=== PATIENT | female | born 1965 | race Caucasian/White ===

== ENCOUNTER 2016-09-01 09:05 | Emergency (ER) | payer OTHER ==
[~2016-09-01] VITALS: Ht 165.1 cm; Wt 94.3 kg
[~2016-09-01 09:05] MED LIST: ALBU1AER9; ASPI1TAB4
[2016-09-01 09:10] VITALS: TEMP 37.1; Ht 165.1 cm; Wt 94.3 kg
[2016-09-01] MEDS ORDERED: IBUP1CAP (10:01)
[2016-09-01 10:05] LABS: HEMATOCRIT 40.4 % (37-47); MEAN CORPUSCULAR HEMOGLOBIN 29.7 pg (25-34); MEAN CORPUSCULAR HGB CONC 35.4 g/dl (32-36); MEAN PLATELET VOLUME 10.2 fL (7.4-10.4); PLATELET COUNT 188 K/uL (130-400); RED BLOOD COUNT 4.81 M/uL (4.2-5.4); WHITE BLOOD COUNT 10.04 K/uL (4.8-10.8)
[2016-09-01 10:21] LABS: BUN/CREATININE RATIO 10.7 (10-20); CALCIUM 8.7 mg/dl (8.5-10.1); CREATININE 0.75 mg/dl (0.60-1.20); POTASSIUM 3.6 mmol/L (3.5-5.1)
[2016-09-01 10:24] LABS: MANUAL MICROSCOPIC REQUIRED? NO; REVIEW REQ? NO; URINE APPEARANCE CLEAR (CLEAR); URINE BILIRUBIN NEG (NEG); URINE COLOR YELLOW; URINE NITRITE NEG (NEG); URINE SPECIFIC GRAVITY 1.004 (1.000-1.030); UROBILINOGEN NEG (NEG); ZZUR CULT IF INDIC CLEAN CATCH NO
[2016-09-01] MEDS ORDERED: KETOROLAC TROMETHAMINE 30 MG/ML VIAL IV STA (10:39)
[2016-09-01] MEDS ORDERED: SODIUM CHLORIDE 0.9% 1000ML 1,000 ML IV STA (10:49)
--- NOTE | 2016-09-01 10:49 | EMERGENCY ROOM VISIT NOTE ---
History Report prepared by Giovanni: Nahomy Tate Under the Supervision of: Dr. Lata Rodgers M.D. First contact with patient: 10:35 Chief Complaint: VAGINAL BLEEDING Stated Complaint: VAGINAL BLEEDING,CRAMPING History of Present Illness The patient is a 50 year old female who presents to the Emergency Room with complaints of intermittent vaginal bleeding that began 2 months ago. The patient states that she has a history of endometrial ablation, and since then her periods have been fairly light. At the beginning of June, she had what seemed like a normal period for about five days. A few days later, she had another 5 days of bleeding. 4-5 days later, she started bleeding heavily and had intense menstrual cramps. She had a 10 day period in the middle of July that was slightly heavier than normal but not as heavy as the previous episode of bleeding. Last week, she followed with gynecology to have a biopsy, ultrasound, blood work, and pelvic exam. Everything seemed to be normal other than the fact that her doctor noticed extra bacteria on the pelvic exam. She was given a vaginal cream to use for 5 days. She had some light bleeding after her appointment. 2 days ago, she had another menstrual period. She notes that her menstrual cramps are much worse than normal. She also complains of feeling drained of energy. She has not taken anything in the past 10 hours for her pain. Source of History: patient Onset: 2 months ago Position: other () Quality: other (vaginal bleeding) Timing: intermittent Associated Symptoms: + abdominal pain Note: Other symptoms: no energy Review of Systems See HPI for pertinent positives & negatives. A total of 10 systems reviewed and were otherwise negative. Past Medical & Surgical Medical Problems: (1) Asthma (2) Borderline hyperglycemia (3) Exploratory laparotomy (4) Postoperative hemorrhage Surgical Problems: (1) History of herniorrhaphy Family History Cancer Hypertension Lung disease Social History Smoking Status: Current Every Day Smoker Alcohol Use: none Drug Use: none Marital Status: Housing Status: lives with family Current/Historical Medications Scheduled PRN Albuterol (Proair Hfa), 2 for Wheezing Miscellaneous Medications Ibuprofen (Midol) Allergies Coded Allergies: Sulfamethoxazole w/Trimethoprim (Unverified Adverse Reaction, Unknown, dizziness, 09/01/16) Pt guessed on drug name, said "that sounded right.." Physical Exam Vital Signs Date Time Temp Pulse Resp B/P Pulse Ox O2 Delivery O2 Flow Rate FiO2 09/01/16 14:16 70 17 124/81 98 Room Air 09/01/16 13:09 78 17 131/62 99 Room Air 09/01/16 11:10 83 17 118/75 99 Room Air 09/01/16 09:10 37.1 95 18 169/97 98 Room Air Physical Exam Vital signs reviewed. General: Well-appearing 50 year old female, in no significant distress. HEENT: No scleral icterus, PERRLA, neck supple. Atraumatic. Cardiovascular: Regular rate and rhythm, no extra sounds. Pulmonary: Clear to auscultation bilaterally, normal work of breathing. Abdomen: Obese, soft, mild suprapubic tenderness, nondistended, positive bowel sounds. Musculoskeletal: Atraumatic, no peripheral edema. Neurologic: Patient awake alert and oriented x 3 Skin: Warm, dry, no rash Medical Decision & Procedures Laboratory Results 09/01/16 09:40 09/01/16 09:40 Test 09/01/16 09:19 09/01/16 09:40 Urine Color YELLOW Urine Appearance CLEAR (CLEAR) Urine pH 7.0 (4.5-7.5) Urine Specific Cle[place] 1.004 (1.000-1.030) Urine Protein NEG (NEG) Urine Glucose (UA) NEG (NEG) Urine Ketones NEG (NEG) Urine Occult Blood 3+ (NEG) Urine Nitrite NEG (NEG) Urine Bilirubin NEG (NEG) Urine Urobilinogen NEG (NEG) Urine Leukocyte Esterase TRACE (NEG) Urine WBC (Auto) 1-5 /hpf (0-5) Urine RBC (Auto) >30 /hpf (0-4) Urine Hyaline Casts (Auto) 0 /lpf (0-5) Urine Epithelial Cells (Auto) 10-20 /lpf (0-5) Urine Bacteria (Auto) NEG (NEG) Urine Test NEG (NEG) Red Blood Count 4.81 M/uL (4.2-5.4) Mean Corpuscular Volume 84.0 fL (80-100) Mean Corpuscular Hemoglobin 29.7 pg (25-34) Mean Corpuscular Hemoglobin Concent 35.4 g/dl (32-36) RDW Standard Deviation 39.1 fL (36.4-46.3) RDW Coefficient of Variation 12.9 % (11.5-14.5) Mean Platelet Volume 10.2 fL (7.4-10.4) Anion Gap 7.0 mmol/L (3-11) Est Creatinine Clear Calc Drug Dose 99.6 ml/min Estimated GFR () 106.2 Estimated GFR (Non- 91.6 BUN/Creatinine Ratio 10.7 (10-20) Calcium Level 8.7 mg/dl (8.5-10.1) Laboratory results per my review. Medications Administered Medications (Trade) Dose Ordered Sig/Paloma Route Start Time Stop Time Status Last Admin Dose Admin Ketorolac Tromethamine 30 mg 30 mg NOW STAT IV 09/01/16 10:39 09/01/16 10:40 DC 09/01/16 11:11 30 MG Sodium Chloride (Nss 1000ml) 1,000 ml @ 999 mls/hr Q1H1M STAT IV 09/01/16 10:49 09/01/16 11:49 DC 09/01/16 11:10 999 MLS/HR ED Course 1038: The patient was evaluated in room B2. A complete history and physical examination was performed. Ordered Toradol Inj 30 mg IV. 1049: Ordered NSS 1000 ml @ 999 mls/hr IV. 1329: I discussed the case with Dr. Jose Eduardo Rubio [facility]. He will assess the patient. 1410: Upon reevaluation, the patient was resting comfortably. I discussed findings with her. She verbalized agreement of the treatment plan. The patient was discharged home. Medical Decision Differential includes but is not limited to dysfunctional uterine bleeding, endometrial cancer, trauma. This patient was evaluated and appeared to be in no significant distress. IV access was obtained and laboratory work was drawn. The patient was placed on the school bus monitor and found to be in a normal sinus rhythm. Patient was medicated with IV Toradol for her discomfort. Vital signs have remained stable. Laboratory work reveals a stable H&H. Patient states she has had a recent pelvic ultrasound, endometrial biopsy and pelvic exam by her [facility]. I do not think further workup in the emergency department is warranted. Dr. Whitt of [facility] was consulted. He evaluated the patient emergency department and has arrange for follow-up. She will use ibuprofen as needed for pain and return to the ER for worsening of symptoms or any medical concerns. Consults Time Called: 1320 Consulting Physician: Dr. Jose Eduardo Xiao Gynecology Returned Call: [phone] I discussed the case with him. He will assess the patient. Impression Primary Impression: Abnormal vaginal bleeding Scribe Attestation The scribe's documentation has been prepared under my direction and personally reviewed by me in its entirety. I confirm that the note above accurately reflects all work, treatment, procedures, and medical decision making performed by me. Departure Information Dispostion Home / Self-Care Referrals Samantha Arce D.O. (PCP) Patient Instructions My [facility] Additional Instructions Diagnosis: Abnormal vaginal bleeding Ibuprofen 600 mg every 6 hours as needed for pain with food. Drink plenty of clear fluids. Follow-up with [facility] as directed. Return to the ER for worsening of symptoms or any medical concerns.
[2016-09-01 14:16] VITALS: BP 124/81; PULSE 70; O2SAT 98
--- NOTE | 2016-09-02 01:54 | GYNECOLOGICAL CONSULTATION ---
DATE OF CONSULTATION: 09/01/2016 REQURESTING PHYSICIAN: Dr. Lata Rodgers from ER. HISTORY OF PRESENT ILLNESS: This is a 50-year-old female who presents to the Emergency Room with complaints of irregular bleeding x2 months. The patient has had a history of endometrial ablation about 5 years ago and was doing well. In the last year, she has continued to experience irregular bleeding. She was seen in the [facility] office where endometrial biopsy and a pelvic ultrasound was done sometime last month. The patient has a followup appointment to discuss the next step in management. She did, however, have some bleeding today and decided to come to the Emergency Room for evaluation. On arrival at the Emergency Room, she was seen by Dr. Rodgers and evaluated. The patient is stable. She had no shortness of breath, no chills, no fever. INTERLOCKING MACHINE OPERATOR was called for consult. On arrival, the above history was confirmed. The patient reports irregular bleeding, she is frustrated and wants something done about the irregular bleeding. I got the opportunity to review her ultrasound and endometrial biopsy. PAST MEDICAL HISTORY: The patient has history of asthma and hypoglycemia. PAST SURGICAL HISTORY: The patient has history of laparoscopy and hysteroscopy. FAMILY HISTORY: Noncontributory. SOCIAL HISTORY: The patient denies tobacco, drug or alcohol use. MEDICATIONS: The patient is on albuterol p.r.n. ALLERGIES: THE PATIENT IS ALLERGIC TO BACTRIM. PHYSICAL EXAMINATION: GENERAL: Well-developed, well-nourished white female in no acute distress. VITAL SIGNS: Temperature 37.1, pulse 95, respirations 18, blood pressure 169/97. HEART: S1, S2, regular rhythm and rate. LUNGS: Clear to auscultation bilaterally. ABDOMEN: Nontender, nondistended. PELVIC: Mild to moderate vaginal bleeding. No adnexal masses are palpated. EXTREMITIES: No cyanosis, clubbing or edema. ASSESSMENT AND PLAN: A 50-year-old with irregular bleeding. The patient has already been seen at [facility]. She has had endometrial biopsy and an ultrasound. The patient was scheduled for followup appointment to discuss the next step in management. I have discussed management options with the patient including a trial of medical therapy versus hysterectomy. The patient is feeling much better after she received Toradol in the ER. Plan, therefore, is to discharge the patient home. She will continue with pain medicine and she will revisit with either me or her primary [facility] to proceed with the next step in management. MANJULA
== END 2016-09-01 14:45 | disposition home or self-care (01) ==
LOC: C.EDB 09:06
DX: N93.9 Abnormal uterine and vaginal bleeding, unspecified (principal); J45.909 Unspecified asthma, uncomplicated; R73.9 Hyperglycemia, unspecified; F17.200 Nicotine dependence, unspecified, uncomplicated; Z98.890 Other specified postprocedural states; Z88.2 Allergy status to sulfonamides; Z80.9 Family history of malignant neoplasm, unspecified; Z82.49 Family history of ischemic heart disease and other diseases of the circulatory system

== ENCOUNTER → 2017-03-29 | Outpatient (CLI) | payer OTHER ==
[~2017-03-29] MED LIST changes: -ASPI1TAB4; +IBUP1CAP
--- NOTE | 2017-03-29 13:40 | MAMMOGRAPHY REPORT ---
BILATERAL DIGITAL SCREENING MAMMOGRAM TOMOSYNTHESIS WITH CAD: 03/29/2017 CLINICAL HISTORY: Routine screening. Patient has no complaints. TECHNIQUE: Breast tomosynthesis in addition to standard 2D mammography was performed. Current study was also evaluated with a Computer Aided Detection (CAD) system. COMPARISON: Comparison is made to exams dated: 03/24/2016 mammogram, 03/02/2015 mammogram, 02/27/2014 ammogram - [facility], 02/05/2009, and 11/02/2006. BREAST COMPOSITION: There are scattered areas of fibroglandular density in both breasts. FINDINGS: The parenchymal pattern is unchanged. No developing mass, architectural distortion or clus ter of suspicious microcalcifications is seen in either breast. IMPRESSION: ACR BI-RADS CATEGORY 2: BENIGN There is no mammographic evidence of malignancy. A 1 year screening mammogram is recommended. The pa tient will receive written notification of the results. Approximately 10% of breast cancers are not detected with mammography. A negative mammographic report should not delay biopsy if a clinically suggestive mass is present. Zayra Ram M.D. ay/:03/29/2017 08:08:24 Active Directory Systems Administrator: Samantha GORMAN(R)(M), [facility] letter sent: Normal 1/2 BI-RADS Code: ACR BI-RADS Category 2: Benign
== END | disposition home or self-care (01) ==
LOC: C.MAMM 07:41
PROVIDERS: ATTEND Family Medicine
DX: Z12.31 Encounter for screening mammogram for malignant neoplasm of breast (principal)

== ENCOUNTER 2017-11-02 07:08 | Emergency (ER) | payer OTHER ==
[~2017-11-02] VITALS: Ht 165.1 cm; Wt 82.9 kg
[2017-11-02 07:10] VITALS: Ht 165.1 cm; Wt 82.9 kg
[2017-11-02] MEDS ORDERED: KETOROLAC TROMETHAMINE 30 MG/ML VIAL IV STA (07:36)
[2017-11-02] MEDS ORDERED: OMEG10007 PO (07:40)
[2017-11-02] MEDS ORDERED: [UNRECOGNIZED DRUG - REMARK] PO (07:40)
[2017-11-02 07:47] LABS: BASO % 0.1 %; BASO ABS # 0.01 K/uL (0-0.2); HEMOGLOBIN 15.4 g/dL (12.0-16.0); IG# 0.03 K/uL (0.00-0.02); LYMPH % 11.9 %; MEAN CELL VOLUME 84.6 fL (80-100); MEAN CORPUSCULAR HEMOGLOBIN 30.3 pg (25-34); MEAN CORPUSCULAR HGB CONC 35.8 g/dl (32-36); MONO % 6.4 %; NEUT % 81.3 %; NEUT ABS # 8.85 K/uL (1.4-6.5); PLATELET COUNT 167 K/uL (130-400); WHITE BLOOD COUNT 10.89 K/uL (4.8-10.8)
[2017-11-02 07:51] VITALS: O2SAT 98
[2017-11-02 07:59] LABS: ALBUMIN 4.3 gm/dl (3.4-5.0); ALKALINE PHOSPHATASE 88 U/L (45-117); ALT/SGPT 19 U/L (12-78); AST/SGOT 15 U/L (15-37); BLOOD UREA NITROGEN 7 mg/dl (7-18); CALCIUM 8.8 mg/dl (8.5-10.1); CARBON DIOXIDE 28 mmol/L (21-32); CREATININE 0.84 mg/dl (0.60-1.20); GLUCOSE 124 mg/dl (70-99); LIPASE 139 U/L (73-393); POTASSIUM 3.9 mmol/L (3.5-5.1); SODIUM 140 mmol/L (136-145); TOTAL PROTEIN 7.8 gm/dl (6.4-8.2)
[2017-11-02 08:13] LABS: PTT PATIENT 34.1 SECONDS (21.0-31.0)
--- NOTE | 2017-11-02 08:25 | DIAGNOSTIC IMAGING REPORT ---
CHEST ONE VIEW PORTABLE CLINICAL HISTORY: Atypical chest pain COMPARISON STUDY: 08/31/2015 FINDINGS: The cardiac and mediastinal contours are normal. There is no evidence of focal pulmonary consolidation. There is no evidence of failure. No pleural effusions are visualized.[ IMPRESSION: No active disease in the chest. Electronically signed by: Nitish Tan M.D. 11/02/2017 8:24 AM Dictated Date/Time: 11/02/2017 8:23 AM
--- NOTE | 2017-11-02 08:59 | EMERGENCY ROOM VISIT NOTE ---
History First contact with patient: 07:13 Chief Complaint: CHEST PAIN Stated Complaint: CHEST PAIN Nursing Triage Summary: see triage note History of Present Illness The patient is a 52 year old female who presents to the Emergency Room with complaints of left central chest pain. She describes it as a sensation like someone is sitting on her chest. The pain is worsened with movement of the left arm. The patient reports that she noticed discomfort yesterday around noon time. The patient denies doing any strenuous activities. The patient reports that she is not allowed to do any heavy lifting because of history of chronic back problems. The patient reports that she did not take any medicine for her pain, and went to bed last night. When she got up this morning, she reported that the pain was worse. She was trying to wash dishes this morning which made the pain worse, and elected to come to the emergency department for further evaluation. The patient denies any personal cardiac history. The patient has been in the emergency department a few times in the past, and had a stress test 1 year ago that was normal. The patient denies any nausea, diaphoresis, weakness or shortness of breath. The patient does report a prior history of neck problems as well, but denies any recent complications. The patient is right-hand dominant, and currently rates her discomfort a 3 out of 10. The patient denies any significant heart disease in her immediate family. Review of Systems HEENT: Denies dizziness, visual problems, hearing loss, tinnitus. Denies difficulty swallowing or oral lesions. PULMONARY: Denies cough, shortness of breath, sputum production or hemoptysis. CARDIOVASCULAR: Denies palpitations, dyspnea on exertion, orthopnea or peripheral edema. Otherwise see HPI. GASTROINTESTINAL: Denies diarrhea, constipation, nausea, vomiting, or abdominal pain. GENITOURINARY: Denies dysuria, frequency, urgency or nocturia. NEUROLOGIC: Denies history of epilepsy, CVA, TIA or chronic headaches. MUSCULOSKELETAL: Denies history of joint tenderness/swelling. SKIN: Denies rashes or lesions. PSYCHIATRIC: Denies history of depression or mental illness. ENDOCRINE: Denies history of diabetes or thyroid disorders. Past Medical/Surgical History Medical Problems: (1) Asthma (2) Borderline hyperglycemia (3) Exploratory laparotomy (4) Postoperative hemorrhage Surgical Problems: (1) History of herniorrhaphy Family History Cancer Hypertension Lung disease Social History Smoking Status: Current Every Day Smoker Alcohol Use: none Drug Use: none Marital Status: Housing Status: lives with family Current/Historical Medications Scheduled Fish Oil ([place]-3), 1 CAP PO DAILY [Ukn Bp Medication], 1 DOSE PO DAILY Physical Exam Vital Signs Date Time Temp Pulse Resp B/P (MAP) Pulse Ox O2 Delivery O2 Flow Rate FiO2 11/02/17 08:38 62 23 96 Room Air 11/02/17 08:31 108/68 11/02/17 08:08 73 21 95 Room Air 11/02/17 08:01 110/63 11/02/17 07:51 98 Room Air 11/02/17 07:38 67 23 97 Room Air 11/02/17 07:31 136/81 11/02/17 07:21 81 11/02/17 07:20 98 Room Air 11/02/17 07:18 140/82 11/02/17 07:10 36.6 86 20 154/83 99 Room Air Physical Exam CONSTITUTIONAL: Healthy and well nourished. Alert and oriented X 3 with positive affect. Patient does not appear in any acute distress. HEENT: Normocephalic, atraumatic. Pupils equal, round and reactive. NECK: Full active range of motion without discomfort. RESPIRATORY: Clear to auscultation bilaterally with no wheezing, crackles, rhonchi or stridor. The breathing worsens the patient's discomfort. CARDIOVASCULAR: Regular rate and rhythm with no murmurs, rubs or gallops. GASTROINTESTINAL: Bowel sounds present in all quadrants. Soft and nontender to palpation. No hepatosplenomegaly. MUSCULOSKELETAL: Examination shows notable tenderness to palpation of the left costochondral joints and anterior chest wall. Otherwise the patient has no tenderness to palpation through the central back. She has mild discomfort with range of motion of the left shoulder, however no tenderness to palpation across the distal clavicle, acromioclavicular joint or shoulder region. Left upper extremity distal pulses are intact. INTEGUMENTARY: No rash or other significant dermatologic conditions noted. NEUROLOGIC: No focal neurologic deficits noted. Left upper extremity is sensory intact. Medical Decision & Procedures ER Provider Diagnostic Interpretation: My interpretation of an ECG shows a normal sinus rhythm of [address] elevation or other conduction abnormalities. My interpretation of a portable chest x-ray does not show any consolidations, pneumothorax or cardiac prominence. Radiologist report is as follows: CHEST ONE VIEW PORTABLE CLINICAL HISTORY: Atypical chest pain COMPARISON STUDY: 08/31/2015 FINDINGS: The cardiac and mediastinal contours are normal. There is no evidence of focal pulmonary consolidation. There is no evidence of failure. No pleural effusions are visualized.[ IMPRESSION: No active disease in the chest. Laboratory Results 11/02/17 07:21 Red Blood Count 5.08, Mean Corpuscular Volume 84.6, Mean Corpuscular Hemoglobin 30.3, Mean Corpuscular Hemoglobin Concent 35.8, Mean Platelet Volume 10.0, Neutrophils (%) (Auto) 81.3, Lymphocytes (%) (Auto) 11.9, Monocytes (%) (Auto) 6.4, Eosinophils (%) (Auto) 0.0, Basophils (%) (Auto) 0.1, Neutrophils # (Auto) 8.85, Lymphocytes # (Auto) 1.30, Monocytes # (Auto) 0.70, Eosinophils # (Auto) 0.00, Basophils # (Auto) 0.01 11/02/17 07:21 Test 11/02/17 07:21 White Blood Count 10.89 K/uL (4.8-10.8) Red Blood Count 5.08 M/uL (4.2-5.4) Hemoglobin 15.4 g/dL (12.0-16.0) Hematocrit 43.0 % (37-47) Mean Corpuscular Volume 84.6 fL (80-100) Mean Corpuscular Hemoglobin 30.3 pg (25-34) Mean Corpuscular Hemoglobin Concent 35.8 g/dl (32-36) Platelet Count 167 K/uL (130-400) Mean Platelet Volume 10.0 fL (7.4-10.4) Neutrophils (%) (Auto) 81.3 % Lymphocytes (%) (Auto) 11.9 % Monocytes (%) (Auto) 6.4 % Eosinophils (%) (Auto) 0.0 % Basophils (%) (Auto) 0.1 % Neutrophils # (Auto) 8.85 K/uL (1.4-6.5) Lymphocytes # (Auto) 1.30 K/uL (1.2-3.4) Monocytes # (Auto) 0.70 K/uL (0.11-0.59) Eosinophils # (Auto) 0.00 K/uL (0-0.5) Basophils # (Auto) 0.01 K/uL (0-0.2) RDW Standard Deviation 40.0 fL (36.4-46.3) RDW Coefficient of Variation 13.0 % (11.5-14.5) Immature Granulocyte % (Auto) 0.3 % Immature Granulocyte # (Auto) 0.03 K/uL (0.00-0.02) Prothrombin Time 10.1 SECONDS (9.0-12.0) Prothromb Time International Ratio 1.0 (0.9-1.1) Activated Partial Thromboplast Time 34.1 SECONDS (21.0-31.0) Partial Thromboplastin Ratio 1.3 D-Dimer < 190 ug/L FEU (0-500) Anion Gap 5.0 mmol/L (3-11) Est Creatinine Clear Calc Drug Dose 81.4 ml/min Estimated GFR () 91.3 Estimated GFR (Non- 78.8 BUN/Creatinine Ratio 8.4 (10-20) Calcium Level 8.8 mg/dl (8.5-10.1) Total Bilirubin 0.8 mg/dl (0.2-1) Direct Bilirubin 0.2 mg/dl (0-0.2) Aspartate Amino Transf (AST/SGOT) 15 U/L (15-37) Alanine Aminotransferase (ALT/SGPT) 19 U/L (12-78) Alkaline Phosphatase 88 U/L (45-117) Total Creatine Kinase 68 U/L (26-192) Troponin I < 0.015 ng/ml (0-0.045) Total Protein 7.8 gm/dl (6.4-8.2) Albumin 4.3 gm/dl (3.4-5.0) Lipase 139 U/L (73-393) The above labs were reviewed and were grossly normal. Troponin and d-dimer are normal. Medications Administered Medications (Trade) Dose Ordered Sig/Paloma Route Start Time Stop Time Status Last Admin Dose Admin Ketorolac Tromethamine (Toradol Inj) 30 mg NOW STAT IV 11/02/17 07:36 11/02/17 07:38 DC 11/02/17 07:51 30 MG ED Course Patient history and physical exam were performed. Nurse's notes were reviewed. Vital signs were reviewed. Blood pressure is 154/83. O2 saturation is 99% on room air. IV access was established, and labs were drawn. The patient was administered Toradol 30 mg IVP for suspected costochondritis. ECG and portable chest x-ray were normal. Review of labs does not show any acute findings, including a d-dimer and troponin. The patient did report relief of symptoms. The case was discussed with Dr. London, ED attending physician, who agrees with workup and outpatient plan of care. The patient was instructed to follow- up with her family doctor if symptoms are not significantly improving within the next several days. An ice pack was provided. The patient was encouraged alternate ibuprofen and Tylenol as needed for pain. She is welcome to return to the emergency department for any worsening pain, diaphoresis, nausea or other concerning symptoms. The patient was happy with plan of care, voiced understanding of all discharge instructions, and rated her discomfort a 2 out of 10 at the time of discharge. Medical Decision Patient has clinical presentation and physical exam finding of acute costochondritis. Workup today is not suggestive of myocardial infarction, pneumothorax, pneumonia, pancreatitis, hepatitis or cholecystitis. Laboratory studies are not suggestive of pulmonary embolus. [place] Drug Monitoring Program Search Results: patient reviewed within database, no issues identified Medication Reconcilliation Current Medication List: was personally reviewed by ct Blood Pressure Screening Patient's blood pressure: Normal blood pressure Impression Primary Impression: Acute costochondritis Departure Information Referrals Samantha Arce D.O. (PCP) Patient Instructions My [facility]
[2017-11-02 09:00] VITALS: BP 108/68; PULSE 62; TEMP 36.6; O2SAT 96
== END 2017-11-02 09:00 | disposition home or self-care (01) ==
LOC: C.EDB 07:09
DX: M94.0 Chondrocostal junction syndrome [Tietze] (principal); J45.909 Unspecified asthma, uncomplicated; Z82.49 Family history of ischemic heart disease and other diseases of the circulatory system; F17.210 Nicotine dependence, cigarettes, uncomplicated